=== PATIENT | male | born 1970 | race Hispanic/Latino ===

== ENCOUNTER 2017-02-03 17:58 | Emergency (ER) | payer SELFPAY ==
[~2017-02-03] VITALS: Ht 175.3 cm; Wt 105.0 kg
[~2017-02-03 17:58] MED LIST: ALTOPREV20 MG PO; GLIPIZIDE5 MG PO; KEFLEX500 M1 PO; LOPRESSOR25 M1 PO; METFORMIN500 MG PO; TORADOL30 MG/VIAL IJ; ULTRAM50 M1 PO
[2017-02-03] MEDS ORDERED: GLYBURIDE5 M1 PO (19:32)
[2017-02-03] MEDS ORDERED: LOVASTATIN10 MG PO (19:33)
[2017-02-03] MEDS ORDERED: LISINOPRIL10 M1 PO (19:33)
[2017-02-03 19:57] VITALS: BP 129/84
== END 2017-02-03 19:57 | disposition home or self-care (01) | DRG 605 ==
LOC: ED 17:58
PROC: 0HQ0XZZ Repair Scalp Skin, External Approach (ICD-10-PCS; principal; 2017-02-03)
DX: S01.01XA Laceration without foreign body of scalp, initial encounter (principal); W22.8XXA Striking against or struck by other objects, initial encounter; Y93.H2 Activity, gardening and landscaping; Y92.007 Garden or yard of unspecified non-institutional (private) residence as the place of occurrence of the external cause